=== PATIENT | female | born 1955 | race Two or more races ===

== ENCOUNTER 2020-12-04 01:48 | Emergency (ER) | payer OTHER ==
[~2020-12-04] VITALS: Ht 149.9 cm; Wt 52.6 kg
[2020-12-04] MEDS ORDERED: MECLIZINE HCL25 MG PO (05:56)
== END 2020-12-04 06:15 | disposition home or self-care (01) ==
LOC: ER 01:48
DX: R42 Dizziness and giddiness (principal)

== ENCOUNTER 2022-06-10 10:45 | Outpatient (CLI) | payer OTHER ==
[~2022-06-10 10:45] MED LIST: MECLIZINE HCL25 MG PO
== END 2022-06-10 10:53 | disposition home or self-care (01) ==
LOC: MAMO-SONO 10:45
PROVIDERS: ATTEND Internal Medicine Cardiovascular Disease
DX: N63.11 Unspecified lump in the right breast, upper outer quadrant (principal)

== ENCOUNTER → 2022-06-17 | Outpatient (CLI) | payer OTHER | END | disposition home or self-care (01) | LOC: NUCLEAR 12:38 | PROVIDERS: ATTEND Internal Medicine Cardiovascular Disease | DX: M81.0 Age-related osteoporosis without current pathological fracture (principal); E55.9 Vitamin D deficiency, unspecified ==

== ENCOUNTER 2024-06-03 09:59 | Outpatient (CLI) | payer OTHER | END 2024-06-03 10:05 | disposition home or self-care (01) | LOC: RAD 09:59 | PROVIDERS: ATTEND Internal Medicine Cardiovascular Disease | DX: J44.9 Chronic obstructive pulmonary disease, unspecified (principal) ==